=== PATIENT | female | born 1985 | race Caucasian/White ===

== ENCOUNTER 2016-08-23 19:37 | Emergency (ER) | payer MEDICAID | END 2016-08-23 20:45 | disposition left against medical advice (07) | LOC: ER 19:37 | DX: Z53.21 Procedure and treatment not carried out due to patient leaving prior to being seen by health care provider (principal) ==

== ENCOUNTER 2016-10-18 02:50 | Emergency (ER) | payer MEDICAID ==
[2016-10-18 03:02] VITALS: BP 122/72
--- NOTE | 2016-10-18 04:26 | RADIOLOGY REPORT (SQ) ---
EXAM DESCRIPTION: FOREARM RIGHT COMPLETED DATE/TIME: 10/18/2016 4:15 am REASON FOR STUDY: PAIN COMPARISON: None. NUMBER OF VIEWS: Two views. TECHNIQUE: Two radiographic images acquired of the right forearm, including elbow and wrist in at le ast one projection. LIMITATIONS: None. FINDINGS: MINERALIZATION: Normal. BONES: No acute fracture. No worrisome bone lesions. SOFT TISSUES: No obvious swelling or foreign body. OTHER: No other significant finding. IMPRESSION: NEGATIVE STUDY OF THE RIGHT FOREARM. NO RADIOGRAPHIC EVIDENCE OF ACUTE INJURY. TECHNICAL DOCUMENTATION: JOB ID: [id number] [employer]- All Rights Reserved
--- NOTE | 2016-10-18 04:27 | RADIOLOGY REPORT (SQ) ---
EXAM DESCRIPTION: WRIST RIGHT 3 VIEWS COMPLETED DATE/TIME: 10/18/2016 4:15 am REASON FOR STUDY: PAIN COMPARISON: None. NUMBER OF VIEWS: Three views. TECHNIQUE: AP, lateral, and oblique radiographic images acquired of the right wrist. LIMITATIONS: None. FINDINGS: MINERALIZATION: Normal. BONES: No acute fracture or dislocation. No worrisome bone lesions. Normal alignment. Sdht-gc-yums rate ulnar negative variance. SOFT TISSUES: No soft tissue swelling. No foreign body. OTHER: No other significant finding. IMPRESSION: NO RADIOGRAPHIC EVIDENCE OF ACUTE INJURY. TECHNICAL DOCUMENTATION: JOB ID: [id number] [employer]- All Rights Reserved
--- NOTE | 2016-10-18 05:05 | RADIOLOGY REPORT (SQ) ---
EXAM DESCRIPTION: ELBOW RIGHT AP/LAT COMPLETED DATE/TIME: 10/18/2016 4:51 am REASON FOR STUDY: trauma COMPARISON: None. NUMBER OF VIEWS: Four views. TECHNIQUE: AP, lateral, and both oblique radiographic images acquired of the right elbow. LIMITATIONS: None. FINDINGS: MINERALIZATION: Normal. BONES: No acute fracture or dislocation. No worrisome bone lesions. JOINT: No effusion. SOFT TISSUES: No soft tissue swelling. No foreign body. OTHER: No other significant finding. IMPRESSION: NEGATIVE STUDY OF THE RIGHT ELBOW. NO RADIOGRAPHIC EVIDENCE OF ACUTE INJURY. TECHNICAL DOCUMENTATION: JOB ID: [id number]- All Rights Reserved
--- NOTE | 2016-10-18 05:21 | ER Document Report ---
ED General - General Chief Complaint: Arm Pain Stated Complaint: RIGHT ARM PAIN Time Seen by Provider: 10/18/16 03:52 Notes: Patient is a 31-year-old female who presents with complaint of pain over her right hand and arm. She says that the shower head fell down onto her hand and is causing pain. She also said a block fell onto her arm. She says she has chronic recurrent pain that shoots up and down her right arm. Patient says the only thing she has at her house to take for the pain is Motrin and it is not helping. She has no other complaints at this time. She says she is going for nerve conduction studies on the of this month. TRAVEL OUTSIDE OF THE [place] IN LAST 30 DAYS: No - Related Data Allergies/Adverse Reactions: Penicillins Allergy (Verified 10/18/16 05:03) Sulfa (Sulfonamide Antibiotics) Allergy (Verified 10/18/16 05:03) Past Medical History - Social History Smoking Status: Current Every Day Smoker Chew tobacco use (# tins/day): No Frequency of alcohol use: None Drug Abuse: None Family History: Reviewed & Not Pertinent Patient has suicidal ideation: No Patient has homicidal ideation: No Renal/ Medical History: Reports: Hx Ovarian Cysts. Denies: Hx Peritoneal Dialysis Past Surgical History: Reports: Hx Gynecologic Surgery - Ovarian cysts, Hx Nose Surgery - Rhinoplasty, Hx Tubal Ligation - Immunizations Hx Diphtheria, Pertussis, Tetanus Vaccination: Yes Review of Systems - Review of Systems Notes: My Normal Review Basic REVIEW OF SYSTEMS: CONSTITUTIONAL : Denies fever, chills, or sweats. Denies recent illness. MUSCULOSKELETAL: Pain in right hand and arm. SKIN: Denies rash or skin lesions. NEUROLOGICAL: Denies altered mental status or loss of consciousness. Denies headache. Denies weakness or paralysis or loss of use of either side. Denies problems with gait or speech. Denies sensory or motor loss. ALL OTHER SYSTEMS REVIEWED AND NEGATIVE. Physical Exam - Vital signs Vitals: Temp Pulse Resp BP Pulse Ox 97.8 F 107 H 16 122/72 98 10/18/16 02:59 10/18/16 02:59 10/18/16 02:59 10/18/16 02:59 10/18/16 02:59 - Notes Notes: General Appearance: Well nourished, alert, cooperative, no acute distress, mild to moderate obvious discomfort. Vitals: reviewed, See vital signs table. Head: no swelling or tenderness to the head Eyes: PERRL, EOMI, Conjuctiva clear Mouth: No decreasd moisture Lungs: No wheezing, No rales, No rhonci, No accessory muscle use, good air exchange bilaterally. Heart: Normal rate, Regular rythm, No murmur, no rub Abdomen: Normal BS, soft, No rigidity, No abdominal tenderness, No guarding, no rebound, no abdominal masses, no organomegaly Extremities: strength 5/5 in all extremities, good pulses in all extremities, anytime I barely touch the patient's skin she screams out that she is having pain. She has no swelling or bruising or signs of trauma to the hand or arm. No redness. She has good capillary refill. She has good distal sensation. She has good pulses. Skin: warm, dry, appropriate color, no rash Neuro: speech clear, oriented x 3, normal affect, responds appropriately to questions. Course - Vital Signs Vital signs: Temp Pulse Resp BP Pulse Ox 97.8 F 107 H 16 122/72 98 10/18/16 02:59 10/18/16 02:59 10/18/16 02:59 10/18/16 02:59 10/18/16 02:59 - Transfer of Care Notes: 10/19/16 06:59 I do not know the exact cause of the patient's pain at this time. She describes it as a neuropathic pain that is worse with trauma almost certainly like complex regional pain syndrome except for she does not have any type of skin changes on exam or anything else that would suggest this. She initially told me that she only had Motrin to take at home. I did look up on the prescription database and see Ruel that she gets Vicodin every month. She just received a 30 day supply 9 days ago. I asked her about this. Patient says that her doctor just prescribe that for her and she does not take it because it does not work for her. I asked her why she would continue to fill prescription every month if it did not work for her. Patient then said that she just wants something different for pain being that she does not feel that this medication is helping her adequately. I offered her gabapentin but she says that she has had gabapentin in the past and it just makes her feel unwell. At this time I do not think patient needs any further opiate medications. I encouraged her to continue to take Tylenol and Motrin for pain and to follow-up with her doctor for her nerve conduction studies. X-rays were negative for any type of concerning injury. Dictation of this chart was performed using voice recognition software; therefore, there may be some unintended grammatical errors. Discharge - Discharge Clinical Impression: Right arm pain Condition: Good Disposition: HOME, SELF-CARE Additional Instructions: PLease follow up with your doctor for your scheduled nerve conduction studies. Please discuss with them further pain control options.
== END 2016-10-18 05:40 | disposition home or self-care (01) ==
LOC: ER 02:50
DX: M79.601 Pain in right arm (principal); M79.641 Pain in right hand; W20.8XXA Other cause of strike by thrown, projected or falling object, initial encounter; G89.29 Other chronic pain; Z88.0 Allergy status to penicillin; Z88.2 Allergy status to sulfonamides; F17.200 Nicotine dependence, unspecified, uncomplicated
CPT/HCPCS: 99283; 73070; 73110; 73090; L3984; L3650